=== PATIENT | female | born 1995 | race Hispanic/Latino ===

== ENCOUNTER 2017-05-24 18:31 | Emergency (ER) | payer SELFPAY | END 2017-05-24 23:14 | disposition home or self-care (01) | LOC: ERS 18:31 | DX: H10.11 Acute atopic conjunctivitis, right eye (principal); J30.2 Other seasonal allergic rhinitis | CPT/HCPCS: 99283 ==

== ENCOUNTER 2018-04-28 16:20 | Emergency (ER) | payer SELFPAY ==
[2018-04-28 18:14] LABS: #Basophils 0.1 thou/uL (0.0-0.2); #Eosinphils 0.1 thou/uL (0.0-0.7); #Lymphocytes 2.4 thou/uL (1.20-3.40); #Monocytes 0.6 thou/uL (0.11-0.59); #Neutrophils 4.4 thou/uL (1.40-6.50); %Basophils 1.1 % (0.0-1.0); %Eosinophils 0.9 % (0.0-10.0); %Lymphocytes 31.8 % (21.0-51.0); %Monocytes 7.3 % (0.0-10.0); %Neutrophils 58.9 % (42.0-75.0); Hemoglobin 13.8 g/dL (12.0-16.0); Mean Corpuscular HGB CONC 34.2 g/dL (32.0-36.0); Mean Corpuscular Hemoglobin 28.9 pg (27.0-31.0); Mean Corpuscular Volume 84.6 fL (78.0-98.0); Mean Platelet Volume 7.1 fL (7.4-10.4); Platelet Count 287 thou/uL (130-400); RBC Distribution Width 13.7 % (11.5-14.5); Red Blood Cell (RBC) Count 4.77 mill/uL (4.20-5.40); White Blood Cell (WBC) Count 7.5 thou/uL (4.8-10.8)
[2018-04-28 18:41] LABS: Bilirubin Negative (Negative); Blood, Urine Large (Negative); Clarity TURBID (Clear); Glucose, Urine (Dipstick) Negative (Negative); Leukocyte Small (Negative); Nitrite Negative (Negative); Protein, Urine (Dipstick) 30 mg/dL (Neg-Trace); Specific Gravity, Urine 1.026 (1.002-1.036); Urobilinogen 0.2 mg/dL (0.2-1.0)
[2018-04-28 18:42] LABS: Bacteria/HPF None Seen HPF (None Seen); Hyaline Casts/LPF 0-3 HYALINE CAST LPF (0-3 Hyaline)
[2018-04-28 18:44] LABS: Yeast-AUWi Flag 31.8 (0-25.0)
[2018-04-28 18:51] LABS: RBC/HPF GREATER THAN 50-TNTC HPF (0-3)
[2018-04-28 18:52] LABS: Yeast-All Forms None Seen HPF (None Seen)
--- NOTE | 2018-04-28 19:02 | ULT ---
PELVIC SONOGRAM: HISTORY: Pelvic pain. Bleeding. TECHNIQUE: Transabdominal and transvaginal imaging with duplex evaluation. FINDINGS: The urinary bladder is decompressed. The uterus has a heterogeneous echotexture and ix 6.8 cm. The endometrium is 0.6 cm without a gestational sac visible. No free fluid. The right ovary is 2.5 cm and the left is 3.1 cm. Each contains follicles and demonstrates good colo r and spectral Doppler flow. IMPRESSION: No sonographic evidence of . No significant abnormalities demonstrated. POS: [facility]
[2018-04-29 20:13] LABS: Chlamydia by PCR Not Detected (NotDetected); GC by PCR Not Detected (NotDetected)
== END 2018-04-28 20:45 | disposition home or self-care (01) ==
LOC: ERS 16:20
DX: O03.4 Incomplete spontaneous abortion without complication (principal)
CPT/HCPCS: 36415; 76856; 81003; 81015; 84702; 85025; 86900; 86901; 87480; 87491; 87510; 87591; 87660

== ENCOUNTER 2018-05-20 15:30 | Emergency (ER) | payer SELFPAY ==
--- NOTE | 2018-05-20 16:23 | RAD ---
LEFT ANKLE 3 VIEWS: Date: 05/20/18 HISTORY: Pain. COMPARISON: None. FINDINGS: No acute displaced fracture or malalignment. Soft tissues are unremarkable. IMPRESSION: No acute displaced fracture or malalignment. POS: [facility]
[2018-05-20] MEDS ORDERED: Ibuprofen 200 MG TAB ONE (16:43)
== END 2018-05-20 16:57 | disposition home or self-care (01) ==
LOC: ERS 15:30
DX: S93.402A Sprain of unspecified ligament of left ankle, initial encounter (principal); W10.9XXA Fall (on) (from) unspecified stairs and steps, initial encounter

== ENCOUNTER 2020-02-05 23:58 | Emergency (ER) | payer OTHER, SELFPAY ==
[2020-02-06 00:46] LABS: #Basophils 0.1 thou/uL (0.0-0.2); #Lymphocytes 2.6 thou/uL (1.20-3.40); #Monocytes 0.6 thou/uL (0.11-0.59); #Neutrophils 4.5 thou/uL (1.40-6.50); %Basophils 0.9 % (0.0-1.0); %Eosinophils 0.5 % (0.0-10.0); %Lymphocytes 33.3 % (21.0-51.0); %Monocytes 7.8 % (0.0-10.0); %Neutrophils 57.5 % (42.0-75.0); Hemoglobin 12.2 g/dL (12.0-16.0); Mean Corpuscular HGB CONC 33.8 g/dL (32.0-36.0); Mean Corpuscular Hemoglobin 27.3 pg (27.0-31.0); Mean Corpuscular Volume 80.9 fL (78.0-98.0); Mean Platelet Volume 8.4 fL (7.4-10.4); Platelet Count 271 thou/uL (130-400); RBC Distribution Width 14.3 % (11.5-14.5); Red Blood Cell (RBC) Count 4.48 mill/uL (4.20-5.40); White Blood Cell (WBC) Count 7.8 thou/uL (4.8-10.8)
[2020-02-06 01:06] LABS: BHCG - Serum Negative (NEGATIVE); Pregs Control Background? CLEAR/WHITE (CLR/WHITE); Pregs Control Bar Appear? YES (CONTROL BAR)
[2020-02-06 01:08] LABS: ALT (SGPT) 10 U/L (8-55); AST (SGOT) 15 U/L (5-34); Albumin 4.3 g/dL (3.5-5.0); Alkaline Phosphatase 61 U/L (40-110); Anion Gap 10 mmol/L (10-20); BUN (Urea Nitrogen) 14 mg/dL (7.0-18.7); Bilirubin, Total 0.6 mg/dL (0.2-1.2); Calc. Creatinine Clearance 0 mL/min (70-130); Calcium 8.9 mg/dL (7.8-10.44); Carbon Dioxide 23 mmol/L (22-29); Chloride 110 mmol/L (98-107); Estimated GFR-MDRD 87; Globulin 2.9 g/dL (2.4-3.5); Glucose 96 mg/dL (70-105); Potassium 3.4 mmol/L (3.5-5.1); Protein, Total 7.2 g/dL (6.0-8.3); Sodium 140 mmol/L (136-145)
[2020-02-06 01:41] LABS: Bilirubin Negative (Negative); Blood, Urine Negative (Negative); Clarity Clear (Clear); Glucose, Urine (Dipstick) Normal (Negative); Leukocyte Negative Leu/uL (Negative); Nitrite Negative (Negative); Protein, Urine (Dipstick) Negative (Neg-Trace); Urobilinogen Normal mg/dL (Less than 2)
--- NOTE | 2020-02-06 09:55 | RAD ---
PORTABLE CHEST: Date: 02/06/2020 HISTORY: Chest pain. Nausea and vomiting. FINDINGS: Lungs are clear. Heart and mediastinum unremarkable. IMPRESSION: No acute findings. POS: [facility]
--- NOTE | 2020-02-06 14:35 | EKG ---
Test Reason : Blood Pressure : / mmHG Vent. Rate : 089 BPM Atrial Rate : 089 BPM P-R Int : 120 ms QRS Dur : 084 ms QT Int : 360 ms P-R-T Axes : 053 035 025 degrees QTc Int : 438 ms Normal sinus rhythm Normal ECG Confirmed by LA QUEEN, KAIDEN Anthony ([id number]), publications editor ALEXA GARZA ([id number] on 02/06/2020 2:34:26 PM Referred By: Confirmed By:KAIDEN TOVAR MD
== END 2020-02-06 03:10 | disposition home or self-care (01) ==
LOC: ERS 23:58
DX: F43.0 Acute stress reaction (principal); R06.00 Dyspnea, unspecified
CPT/HCPCS: 71045; 80053; 81003; 82550; 84484; 84703; 85025; 85379; 93005

== ENCOUNTER 2024-10-23 19:33 | Emergency (ER) | payer OTHER, SELFPAY ==
[2024-10-23] MEDS ORDERED: Ondansetron ODT 4 MG TAB ONE (19:40)
[2024-10-23 20:03] LABS: #Basophils 0.06 10x3/uL (0.0-0.2); %Basophils 0.8 % (0.0-1.0); %Eosinophils 0.8 % (0.0-10.0); %Lymphocytes 35.8 % (21.0-51.0); %Monocytes 7.7 % (0.0-10.0); %Neutrophils 54.8 % (42.0-75.0); Hematocrit 38.7 % (36.0-47.0); Hemoglobin 12.8 g/dL (12.0-16.0); Mean Corpuscular HGB CONC 33.1 g/dL (32.0-36.0); Mean Corpuscular Volume 87.6 fL (78.0-98.0); Mean Platelet Volume 9.7 fL (7.4-10.4); Platelet Count 291 10x3/uL (130-400); Red Blood Cell (RBC) Count 4.42 mill/uL (4.20-5.40)
[2024-10-23 20:10] LABS: Bilirubin Negative (Negative); Blood, Urine Negative (Negative); CAUTI Indications for Culture Pregnancy; Clarity Clear (Clear); Glucose, Urine (Dipstick) Normal (Negative); Ketone, Urine 10 mg/dL (Negative); Leukocyte Negative Leu/uL (Negative); Nitrite Negative (Negative); Protein, Urine (Dipstick) 10 mg/dL (Neg-Trace); RBC/HPF 0-3 HPF (0-3); Specific Gravity, Urine 1.033 (1.002-1.036); Urobilinogen Normal mg/dL (Less than 2); WBC/HPF 0-3 HPF (0-3); pH, Urine 5.5 (5.0-9.0)
[2024-10-23 20:12] LABS: Bacteria/HPF Rare-Few HPF (None Seen)
[2024-10-23 20:13] LABS: Urine Culture Reflex Yes Yes
[2024-10-23 20:18] LABS: ALT (SGPT) 13 U/L (Less than 34); AST (SGOT) 20 U/L (11-34); Albumin 4.2 g/dL (3.1-4.5); Alkaline Phosphatase 56 U/L (40-110); Anion Gap 15 mmol/L (10-20); BUN (Urea Nitrogen) 9 mg/dL (7.0-18.7); Bilirubin, Total 0.8 mg/dL (0.3-1.2); Calc. Creatinine Clearance 0 mL/min (70-130); Calcium 9.3 mg/dL (7.8-10.44); Carbon Dioxide 21 mmol/L (22-29); Chloride 107 mmol/L (98-107); Estimated GFR 131; Globulin 3.2 g/dL (2.4-3.5); Glucose 94 mg/dL (70-105); Potassium 3.5 mmol/L (3.5-5.1); Protein, Total 7.4 g/dL (6.0-8.3); Sodium 139 mmol/L (136-145)
[2024-10-23 20:24] LABS: Troponin I Less than 0.010 ng/mL (< 0.028)
== END 2024-10-23 22:19 | disposition home or self-care (01) ==
LOC: ERS 19:33
DX: O21.9 Vomiting of pregnancy, unspecified (principal); Z3A.01 Less than 8 weeks gestation of pregnancy
CPT/HCPCS: 36415; 76856; 80053; 81001; 83690; 84484; 84702; 85025; 86850; 86900; 86901; 87086; 93005; Q0162